=== PATIENT | male | born 1990 | race Caucasian/White ===

== ENCOUNTER 2017-06-24 10:57 | Inpatient (IN) | payer MEDICAID, OTHER ==
--- NOTE | 2017-06-24 11:29 | ED ---
General Adult HPI - General Chief complaint: Psychiatric Symptoms Stated complaint: Mental Health Time Seen by Provider: 06/24/17 11:05 Source: patient, police, RN notes reviewed Mode of arrival: ambulatory Limitations: no limitations - History of Present Illness Initial comments: This is a 26-year-old male who presents to the emergency department complaining of having a lot of past history of depression which she states continues today. Patient states he was drinking last night and probably still intoxicated today. According to the police brought him in they stated that he was walking in and out of traffic. Patient claims she was just walking in the street. Patient denies wanting to harm himself today though he has had suicidal ideations but he would never act on them he states. Patient states this is been something he is dealt with for many years and has never acted on them. Patient denies taking any pills today. Patient denies doing any illegal drugs except marijuana recently. Patient states he is not currently harm to himself. Patient does state that he probably does need to be evaluated because lately his depression has been getting worse. Patient denies any physical complaints today. - Related Data Home Medications Medication Instructions Recorded Confirmed No Known Home Medications [No 06/24/17 06/24/17 Known Home Medications] Allergies Allergy/AdvReac Type Severity Reaction Status Date / Time No Known Allergies Allergy Verified 06/24/17 12:15 Review of Systems ROS Statement: Those systems with pertinent positive or pertinent negative responses have been documented in the HPI. ROS Other: All systems not noted in ROS Statement are negative. Past Medical History Past Medical History: No Reported History History of Any Multi-Drug Resistant Organisms: None Reported Past Surgical History: No Surgical Hx Reported Past Psychological History: No Psychological Hx Reported Smoking Status: Current every day smoker Past Alcohol Use History: Occasional Past Drug Use History: Marijuana General Exam - General Exam Comments Initial Comments: GENERAL: Patient is well-developed and well-nourished. Patient is nontoxic and well- hydrated and is in no acute distress. ENT: Neck is soft and supple. No significant lymphadenopathy is noted. Oropharynx is clear. Moist mucous membranes. Neck has full range of motion without eliciting any pain. EYES: The sclera were anicteric and conjunctiva were pink and moist. Extraocular movements were intact and pupils were equal round and reactive to light. Eyelids were unremarkable. PULMONARY: Unlabored respirations. Good breath sounds bilaterally. No audible rales rhonchi or wheezing was noted. CARDIOVASCULAR: There is a regular rate and rhythm without any murmurs gallops or rubs. ABDOMEN: Soft and nontender with normal bowel sounds. No palpable organomegaly was noted. There is no palpable pulsatile mass. SKIN: Skin is clear with no lesions or rashes and otherwise unremarkable. NEUROLOGIC: Patient is alert and oriented x3. Cranial nerves II through XII are grossly intact. Motor and sensory are also intact. Normal speech, volume and content. Symmetrical smile. MUSCULOSKELETAL: Normal extremities with adequate strength and full range of motion. No lower extremity swelling or edema. No calf tenderness. LYMPHATICS: No significant lymphadenopathy is noted PSYCHIATRIC: Normal psychiatric evaluation. Normal interpersonal interactions appears functionally intact in deals appropriately with others. No signs of depression. No signs of anxiety. Limitations: no limitations Course Vital Signs 06/24/17 11:05 Temperature 97.3 F L Pulse Rate 99 Respiratory 18 Rate Blood Pressure 130/76 O2 Sat by Pulse 96 Oximetry Medical Decision Making - Medical Decision Making EKG shows normal sinus rhythm at 77 bpm FL interval is on a 38 QRS is under QT interval 354 QTC is 400. Patient's EKG shows no ST segment elevation or depression. Patient does have flattening of the T-wave in the precordial leads V3 through V6. - Lab Data Lab Results 06/24/17 Range/Units 12:00 Urine Opiates Screen Not Detected (NotDetected) Ur Oxycodone Screen Not Detected (NotDetected) Urine Methadone Screen Not Detected (NotDetected) Ur Propoxyphene Screen Not Detected (NotDetected) Ur Barbiturates Screen Not Detected (NotDetected) U Tricyclic Antidepress Not Detected (NotDetected) Ur Phencyclidine Scrn Not Detected (NotDetected) Ur Amphetamines Screen Not Detected (NotDetected) U Methamphetamines Scrn Not Detected (NotDetected) U Benzodiazepines Scrn Not Detected (NotDetected) Urine Cocaine Screen Not Detected (NotDetected) U Marijuana (THC) Screen Detected H (NotDetected) Disposition Clinical Impression: Depression, Suicidal ideation Disposition: ADMITTED IP TO THIS [facility] Time of Disposition: 16:08
[2017-06-24] MEDS ORDERED: MAG HYDROX/AL HYDROX/SIMETH 30 ML CUP PO PRN (16:08)
[2017-06-24] MEDS ORDERED: MAGNESIUM HYDROXIDE 2,400 MG/10 ML CUP PO PRN (16:08)
[2017-06-24] MEDS ORDERED: ACETAMINOPHEN TAB 325 MG TAB PO PRN (16:08)
[2017-06-24] MEDS ORDERED: ZIPRASIDONE 20 MG VIAL IM PRN (16:08)
--- NOTE | 2017-06-24 18:51 | P.MDCNMH ---
History of Present Illness H&P Date: 06/24/17 Chief Complaint: acute alcohol intoxication 26 year old male with no significant past medical history, presented by police due to alcohol intoxication. I interviewed the patient in the psych unit, patient was calm and cooperative. He reported that he was drinking heavily last night, and he could not remember anything that happened during the night and admits that he probably was wondering around in the park. however, this morning he believes that he was doing ok and minding his own business, but, per his report, his mom noticed some disturbing behaviors for which she called the police and was brought in here to the hospital. He reports that he's been going through some social issues in his life and he is currently unemployed that's why he decided to move back to his mother's house in the area. He otherwise denies any psychiatry illnesses in the past but due to life stressors he always thinks of suicide without having to encourage to commit and actually denies any plans. He also admitted that he would never and his life this way. He does admit to heavily drinking when he drinks and that's usually once or twice a month. He otherwise denies the use of any recreational drugs. Review of Systems Constitutional: Patient reports no fever, no chills, no night sweating, no significant weight changes Eyes: Patient reports no visual changes, no eye pain ENT: Patient reports no ear pain, no rhinorrhea, no sore throat. Patient does report some tootch ache over left lower molar Cardiovascular: Patient reports no chest pain, no exertional dyspnea, no peripheral leg edema, no orthopnea, no paroxysmal nocturnal dyspnea Respiratory:Patient reports no cough, no wheezing, no shortness of breath Gastrointestinal: Patient reports no diarrhea, no constipation, no nausea no vomiting, no abdominal pain Genitourinary: Patient reports no dysuria, no hematuria, no changes in urinary habits, no genital lesions, no penile discharge Musculoskeletal: Patient reports no muscle pain, no joint pain Psychiatric: Patient reports depressed mood and anxiety, suicidal ideation all his life without any actual plan Endocrine: Patient reports no heat intolerance, no cold intolerance, no excessive thirst, no polyuria Neurological: Patient reports no focal neurologic deficits, no weakness, no numbness, no tingling Hem/Lymphatic: Patient reports no bleeding tendency, no bruising, no swollen lymph glands Allergic/Immun: Patient reports no recent allergic reactions Skin: Patient reports no rashes, no pruritis, no ulcers Past Medical History Past Medical History: No Reported History History of Any Multi-Drug Resistant Organisms: None Reported Past Surgical History: No Surgical Hx Reported Past Psychological History: No Psychological Hx Reported Smoking Status: Current every day smoker Past Alcohol Use History: Occasional Additional Past Alcohol Use History / Comment(s): once or twice a month, but drinks heavily when he does Past Drug Use History: Marijuana Additional Drug Use History / Comment(s): occasional Additional History: Currently unemployed and lives with his mother. Family history denies any psychiatric disorder, or any cardiac problems Medications and Allergies Home Medications and Allergies Comment(s): denies taking any medications at home Home Medications Medication Instructions Recorded Confirmed Type No Known Home Medications [No 06/24/17 06/24/17 History Known Home Medications] Allergies Allergy/AdvReac Type Severity Reaction Status Date / Time No Known Allergies Allergy Verified 06/24/17 16:46 Physical Exam Vitals: Vital Signs Temp Pulse Pulse Resp BP BP Pulse Ox 06/24/17 16:39 97.4 F L 80 15 111/74 97 06/24/17 16:18 97.9 F 95 18 128/76 96 06/24/17 11:05 97.3 F L 99 18 130/76 96 Intake and Output 06/24/17 06/24/17 06/24/17 06:59 14:59 22:59 Other: Weight 63.503 kg 63.4 kg Patient Weight 06/25/17 06:59 Weight 63.4 kg Constitutional: Not in acute distress, pleasant, conversant, vital signs stable Eyes: Pupils equal round reactive to light , anicteric sclerae, moist conjunctivae ENMT: Normocephalic, atraumatic, oropharynx clear, no erythema/exudate Neck: Supple, FORM, no palpable thyromegally Lymphatics: no palpable cervical or supraclavicular lymph nodes, no palpable inguinal lymph nodes Respiratory: Clear to auscultation bilaterally, no wheezes, no crackles, no rhonchi, clear to percussion, normal respiratory effort without use of accessory muscles Cardiovascular: Regular rate and rhythm, no murmurs, no gallops, no rubs, no peripheral edema, no JVD, no carotid bruits, peripheral pulses palpable and equal over bilateral radial arteries and dorsalis pedis arteries Abdomen: Bowel sounds positive, soft, no tenderness to palpation, no palpable masses, no palpable hepatosplenomegally, no abdominal wall hernias Skin: Unremarkable temperature, tone, texture, and turgor, no induration or subcutaneous nodule, no rashes, no lesions, no ulcers Extremities: No digital cyanosis, ischemia or clubbing, no calf muscle tenderness bilaterally Psych: Alert, oriented to place, person and date, recent and remote memory intact, depressed mood and blunt affect, poor judgment Neurologic: Cranial nerves II-XII grossly intact, no focal sensory deficits to touch, Deep tendon reflexes unremarkable over bilateral knees Cranial Nerve Examination - Cranial Nerves Cranial Nerve II- Optic: Intact Cranial Nerve III- Oculomotor: Intact Cranial Nerve IV- Trochlear: Intact Cranial Nerve V- Trigeminal: Intact Cranial Nerve - Abducens: Intact Cranial Nerve VII- Facial: Intact Cranial Nerve VIII- Auditory: Intact Cranial Nerve IX- Glossopharyngeal: Intact Cranial Nerve X- Vagus: Intact Cranial Nerve XI- Accessory: Intact Cranial Nerve XII- Hypoglossal: Intact Results Labs: Abnormal Lab Results - Last 24 Hours (Table) 06/24/17 Range/Units 12:00 U Marijuana (THC) Screen Detected H (NotDetected) Assessment and Plan (1) Tobacco dependence Narrative/Plan: patient counseled to quit smoking nicotine replacement therapy offered Status: Chronic (2) Depression Narrative/Plan: management per psych Status: Acute (3) Suicidal ideation Narrative/Plan: management per psych Status: Acute (4) Alcohol abuse Narrative/Plan: patient counseled to abstain from alcohol abuse and educated regarding acceptable alcohol consumption behaviors Status: Acute Plan: Thank you for allowing us to participate in the care of this patient. We will follow peripherally. Do not hesitate to contact us with questions. Someone can be reached from the [facility] hospitalist group at all hours of the day at [phone].
[2017-06-25] MEDS: LORazepam 1 MG TAB PO PRN (03:28)
[2017-06-25 09:22] LABS: Basophils # (A) 0.1 k/uL (0-0.2); Basophils % (A) 1 %; CH 33.3; CHCM 33.2; Eosinophils # (A) 0.4 k/uL (0-0.7); Eosinophils % (A) 5 %; HCT 53.2 % (39.0-53.0); HDW 2.24; HGB 16.8 gm/dL (13.0-17.5); Luc # (Auto) 0.15; Luc % (Auto) 2; Lymphocytes # (A) 1.8 k/uL (1.0-4.8); Lymphocytes % (A) 22 %; MCH 31.9 pg (25.0-35.0); MCHC 31.6 g/dL (31.0-37.0); MCV 100.8 fL (80.0-100.0); Monocytes # (A) 0.4 k/uL (0-1.0); Monocytes % (A) 5 %; Neutrophils # (A) 5.6 k/uL (1.3-7.7); Neutrophils % (A) 65 %; RBC 5.28 m/uL (4.30-5.90); RDW 13.7 % (11.5-15.5); WBC 8.5 k/uL (3.8-10.6); WBC (Perox) 8.39
[2017-06-25 09:56] LABS: ALT 27 U/L (21-72); AST 31 U/L (17-59); Alkaline Phosphatase 96 U/L (38-126); Anion Gap 9 mmol/L; Blood Urea Nitrogen 11 mg/dL (9-20); Calcium 9.6 mg/dL (8.4-10.2); Carbon Dioxide 29 mmol/L (22-30); Chloride 103 mmol/L (98-107); Glucose 89 mg/dL (74-99); Non-African American GFR(MDRD) >60 (>60 ml/min/1.73 sqM); Potassium 4.5 mmol/L (3.5-5.1); Sodium 141 mmol/L (137-145); Total Bilirubin 0.6 mg/dL (0.2-1.3); Total Protein 6.6 g/dL (6.3-8.2)
[2017-06-25] MEDS: NICOTINE 14MG/24HR PATCH TRANSDERM SCH (10:13)
[2017-06-25] MEDS: ARIPiprazole 10 MG TAB PO SCH (13:28)
[2017-06-26] MEDS: LORazepam 1 MG TAB PO PRN ×2 (02:08→22:42)
--- NOTE | 2017-06-26 08:15 | HP ---
DATE OF SERVICE: 06/25/17 IDENTIFYING DATA: This patient is a 26 -year-old single male who was admitted to the mental health unit on a petition completed by his mother. HISTORY OF PRESENT ILLNESS: the patients mother petitioned the patient as he had been demonstrating bizarre behavior. She reported that he attempted to walk out into traffic and he had to be restrained by family members. He states that he does have suicidal thoughts and he had a plan of cutting his wrists. He recently relocated back to his mothers home from [facility]. He was out there with a girlfriend and apparently that relationship terminated. He describes frequent tearfulness and crying spells, decreased sleep, decreased appetite with weight loss. Energy has been low. He does describe episodes that could be manic where he will have decreased need for sleep, increased energy, racing thoughts, increased goal directed activity. He does endorse history of frequent mood swings. Additionally he reports feelings of being able to read others thoughts. He feels in general he is being watched but he does not know by who. Several times, he will experience seeing a light but does not know the meaning and it will happen in a variety of context. He is reporting no homicidal ideation. He will experience symptoms of anxiety intermittently but not in the form of panic attacks. He has been off psychotropic medication for at least five years. He has tried several but is unable to provide any report as to which worked or if there are any side effects. Past psychiatric history: This is the second inpatient admission to a psychiatric unit. The first one was several years ago. No history of suicide attempts. Previously he has tried Risperdal, [place], Lamictal with no report on any of those medicines. He is not currently working with a therapist or psychiatrist as an outpatient. Past medical history: none report. ALLERGIES: No known drug allergies. Chemical dependency history: he has been using alcohol for the past two days. Quantity unknown. He used marijuana every other day and reports no other use of illicit drug use. He has never been placed in residential treatment for chemical dependency reasons. Family psychiatric history: None reported. No suicides in the family. Family chemical dependency history: None reported. SOCIAL HISTORY: The patient is 26 years old. He is single. He has no children. He has recently broken up with a girlfriend that he has known for a short while. He was residing in [place] and now living back I [place] with his mother. They are originally from [place] but moved to [place] when he was 8 -year-old. He is a high school graduate. He states he does not do well in school as he did not try. No history of service. He has two brothers and one sister. He is not currently employed. He has no income. LEGAL HISTORY: He was arrested within the past year for drunken disorderly conduct. ABUSE HISTORY: None reported. PHYSICAL EXAMINATION: The patient is alert. He is a thin male appearing the stated age. He has a disheveled appearance. His shirt is oversized. Eye contact is appropriate. He demonstrates an increase in psychomotor activity as he frequently moves in his matty and fidgets. He demonstrates no verbal or physical aggressiveness. He endorses racing thoughts, depression, suicidal ideation, and some anxiety. Thought process can be direct. He demonstrates circumferential thinking and some tangential thinking. No loose associations or flight of ideas demonstrated. Affect demonstrates some range. He reports no homicidal ideation. At this moment he describes no auditory or visual hallucinations but he states that they will frequently occur. In general he feels he is being watched, lending to paranoid thought. No abnormal involuntary movements. His insight and judgement limited. He is oriented to person, place and date. He is able to spell world forward and backwards. STRENGTHS: Support from mother, willingness to receive treatment voluntarily. WEAKNESSES: Recent alcohol use. Noncompliant with medication. Intellect average. IMPRESSION: 1. Bipolar disorder, depressed with psychosis, rule out schizoaffective disorder. Bipolar type, cannabis use disorder, rule out alcoholic use disorder. 2. Psychosocial dysfunction due to psychiatric symptoms and substance use. PLAN: The patient will be admitted to the mental health unit. He is here voluntarily. We reviewed his presenting symptoms and decided to initiate Abilify 10 mg daily to address symptoms of mood instability and psychosis. The medication may require further titration. Social work will meet with the patient to complete a psychosocial assessment. The patient will be seen by internal medicine for routine history and physical examination. JIMMY
[2017-06-26] MEDS: ARIPiprazole 10 MG TAB PO SCH (09:23)
[2017-06-26] MEDS: NICOTINE 14MG/24HR PATCH TRANSDERM SCH ×2 (09:23→14:14)
--- NOTE | 2017-06-26 12:07 | P.PN ---
Progress Note - Text Interval History: This is a 26-year-old male who was admitted due to suicidal ideation, attempting to walk into traffic. I met with the patient and he reported to me that he is always heard voices most of his life but doesn't hear them while he is in the hospital only when he is out of the hospital. Patient states that he had been living in [place] and the living situation was poor, he been working at [employer] but when his car broke down was unable to get to work and they thought he quit and so he lost his job. He reports due to the lack of money he was unable to stay in his current living situation and so returned home to live with his mother. Patient is unable to discuss with me what occurred that he was thinking of suicide other than stating "I broke down" . Patient states that he had also been using alcohol several nights prior to his admission about a fifth a day and he stated the reason was that "felt good and right and was embracive". Patient reports that he has not recently taken any medications for at least the last 3-4 years for psychiatric reasons. He states that he is worried now about how the medication is going to affect him. He states that this is "sterile setting" and so he can't tell how he is doing on the medication. Patient reports that he is no longer thinking of suicide and is not currently hearing voices but is paranoid that people are watching him. Patient had no complaints of side effects from the medication and voiced no other concerns at this time. Mental Status: Appearance/Attitude: Patient was appropriately dressed, made intermittent eye contact and was cooperative. Behavior: Patient displayed no psychomotor agitation or retardation. Speech/Language: Patient's speech was spontaneous, normal volume and rhythm and he was coherent. Thought Process: Patient's thought processes were not goal-directed, he was circumstantial and tangential, there is no evidence of loose associations or flight of ideas. Thought Content: He stated that he is not currently hearing voices, but hears them on the outside and denied any visual hallucinations at this time. Patient states the people are watching him but he could not elaborate on that and no other delusional ideation was elicited. Patient states that he is here because of a "breakdown" and this is the reason for his one prior admission. Patient states that he lost his job and had no way to support himself and so moved back in with his mother. Patient was unable to elaborate on any questions instead was tangential and circumstantial. Suicidal/Homicidal Ideation: Patient denies any current suicidal or homicidal ideation. He is unable to elaborate on why he was feeling suicidal prior to admission. Sensorium/Cognition: Patient is alert and oriented to person, place, and time and his memory is grossly intact. Mood/Affect: Patient stated that he was not depressed but could not express how he was feeling, patient's affect is blunted. Insight/Judgement: Patient's insight and judgment are limited. Assessment: Patient reports that he has had one prior admission and has always heard voices that are judgmental in nature but currently is not hearing them. He states that he was not suicidal but was having a breakdown but again is unable to elaborate. Per staff who spoke with the patient's mother he has always been withdrawn this began around the age of 17 or 18, heard voices. Patient is unable to elaborate on symptoms instead giving very circumstantial and tangential responses to most questions and states that this is a sterile environment and he feels fine here. Plan: Patient is currently on Abilify 10 mg in the morning to target his psychotic symptoms and stabilize his mood and will continue at the current dose. Patient was encouraged to continue to attend and participate in groups and activities. Patient continues to require hospitalization to stabilize his mood.
[2017-06-27] MEDS: ARIPiprazole 10 MG TAB PO SCH (09:05)
[2017-06-27] MEDS: NICOTINE 14MG/24HR PATCH TRANSDERM SCH ×2 (09:05→13:50)
--- NOTE | 2017-06-27 12:20 | P.PN ---
Progress Note - Text Interval History: Patient is a 26-year-old male who was seen today and he reports that he had some difficulty sleeping last night and did request Ativan. Patient reported that his auditory hallucinations only occur in the "wrong environments" or when he is increasingly anxious. He reports that he is not hearing them here. Patient states that they were derogatory statements in the past but recently have just been statements about him. Patient states that people do notice him and keep an eye on him, he reported to me that he thinks at times the radio and his thoughts are in sync with each other. He denied thought insertion, he reported that he has at times thought he could broadcast his thoughts to others. He reports he is feeling more at ease here and describes " lots of feelings of dj vu" when he was visiting a girlfriend in [place]. Patient reported no side effects from the medication and stated that he thought he was ready to return home. Mental Status: Appearance/Attitude: Patient was sleeping in his bed but was easily aroused and was dressed appropriately. Patient made good eye contact and he was cooperative. Behavior: Patient did not display any psychomotor agitation or retardation. Speech/Language: Patient's speech was spontaneous and of normal volume and rhythm and he was coherent. Thought Process: Patient remained circumstantial but was more goal-directed today and his responses there is no evidence of loose associations or flight of ideas. Thought Content: Patient denied auditory hallucinations and denied visual hallucinations. Patient reports that he hears voices when he is in the wrong environments or when he is anxious. Patient was able to endorse thought broadcasting in the past and also reported that at times the radio and his thoughts aren't sync with each other. He did report that people notice him and keep an eye on him that he did not verbalize any delusional ideation. Patient states that he did not sleep well last night and did request an Ativan. Patient reported that he is eating well. Suicidal/Homicidal Ideation: Patient denied any current suicidal or homicidal ideation. Sensorium/Cognition: Patient was alert and oriented to person, place, and time and his memory is grossly intact. Mood/Affect: Patient's mood is stable and his affect is blunted. Insight/Judgement: Patient's insight and judgment are limited. Assessment: Patient has been taking his medication and has been participating in groups and is more goal-directed today in his responses. He was able to verbalize that he has had thought broadcasting ideation in the past, thoughts that the radio and his thoughts aren't sync with each other and that people keep an eye on him and noticed him. Patient states he feels more at ease here and has not had any further auditory hallucinations and is not having any suicidal thoughts. Patient states that he is ready to return home to live with his parents in [place] and states that he look for a job. Plan: Patient will continue on Abilify 10 mg daily to target his psychotic symptoms. Patient was encouraged to continue to attend and participate in groups and activities. Patient and I discussed the use of melatonin to assist with his sleep at night but he declined. Patient and I discussed his discharge for tomorrow and he was agreeable with this. We discussed his discharge in team treatment meeting today and the need for referrals for outpatient treatment.
[2017-06-27] MEDS: LORazepam 1 MG TAB PO PRN (21:43)
[2017-06-28 00:39] VITALS: BP 113/64; PULSE 73; RESP 18; TEMP 97.5
[2017-06-28] MEDS: NICOTINE 14MG/24HR PATCH TRANSDERM SCH (10:01)
[2017-06-28] MEDS: ARIPiprazole 10 MG TAB PO SCH (10:02)
--- NOTE | 2017-06-28 11:43 | P.DS ---
Providers Date of admission: 06/24/17 16:04 Expected date of discharge: 06/28/17 Attending physician: Hannah Miles MD Consults: 06/24/17 16:08 Consult Physician Routine Consulting Provider: Donnie Jay Consult Reason/Comments: follow up H & P Do you want consulting provider notified?: Yes Primary care physician: Stated None Hospital Course: Discharge Diagnoses: Schizoaffective disorder, depressed; cannabis use disorder , mild Reason for Admission: Patient is a 26-year-old male who was petitioned by his mother after he had been demonstrating bizarre behavior such as walking out into traffic and needing to be restrained by family members. Patient reported that he had suicidal thoughts and had a plan of cutting his wrists. He reported a breakup with his girlfriend and was having episodes of crying, not eating or sleeping with a decreased level of energy. Patient also reported hearing voices and having a breakdown. Patient prior to admission had been using alcohol for several days, he reported a fifth a day and patient reported use of marijuana every other day. Hospital Course: Patient was admitted on a voluntary basis, medical consultation was obtained, he was placed on routine precautions and laboratory studies were ordered. Patient was placed on Abilify 10 mg a day to target his psychotic symptoms and stabilize his mood. Patient reported that he hears voices frequently when he is under stress and reported no further auditory hallucinations in the hospital because this was a "sterile environment". Patient stated that he feels people are looking at him at times, he reported that at times the radio and his thoughts are in sync with each other. Patient reported that he was not hearing voices, he reported no further suicidal ideation, and was no longer depressed. Patient's Abilify was not increased, patient was attending groups. Patient reported that he was interested in trying to return to work and reported that he would return to live with his mother. Patient was no longer expressing any thoughts of suicide, his mood was more positive and he denied any auditory hallucinations and no delusional ideation. Patient reported no side effects from the medication. Discharge Mental Status: Appearance/Attitude: Patient was neatly dressed, made good eye contact and was cooperative. Behavior: Patient did not exhibit any psychomotor agitation or retardation. Speech/Language: Patient's speech was spontaneous, normal volume and rhythm and he was coherent. Thought Process: Patient was more goal-directed, at times circumstantial with no evidence of loose associations or flight of ideas. Thought Content: Patient denied any auditory or visual hallucinations, denied any racing thoughts and no paranoid or delusional ideation was elicited. Patient states that when he is anxious or under stress is when he hears voices and feels that people are looking at him. Patient stated that he was eating and sleeping well. Patient had requested Ativan last evening due to feeling he was not going to sleep well. Patient reported he was interested in trying to find a job again and did feel that the medications had made his thinking clearer. Suicidal/Homicidal Ideation: Patient denied any current suicidal or homicidal ideation. Sensorium/Cognition: Patient was alert and oriented to person, place, and time and his memory was grossly intact. Mood/Affect: Patient's mood was pleasant and his affect was appropriate Insight/Judgement: Patient's insight and judgment are fair. Laboratory Last Values WBC 8.5 k/uL (3.8-10.6) 06/25/17 09:01 RBC 5.28 m/uL (4.30-5.90) 06/25/17 09:01 Hgb 16.8 gm/dL (13.0-17.5) 06/25/17 09:01 Hct 53.2 % (39.0-53.0) H 06/25/17 09:01 MCV 100.8 fL (80.0-100.0) H 06/25/17 09:01 MCH 31.9 pg (25.0-35.0) 06/25/17 09:01 MCHC 31.6 g/dL (31.0-37.0) 06/25/17 09:01 RDW 13.7 % (11.5-15.5) 06/25/17 09:01 Plt Count 290 k/uL (150-450) 06/25/17 09:01 Neutrophils % 65 % 06/25/17 09:01 Lymphocytes % 22 % 06/25/17 09:01 Monocytes % 5 % 06/25/17 09:01 Eosinophils % 5 % 06/25/17 09:01 Basophils % 1 % 06/25/17 09:01 Neutrophils # 5.6 k/uL (1.3-7.7) 06/25/17 09:01 Lymphocytes # 1.8 k/uL (1.0-4.8) 06/25/17 09:01 Monocytes # 0.4 k/uL (0-1.0) 06/25/17 09:01 Eosinophils # 0.4 k/uL (0-0.7) 06/25/17 09:01 Basophils # 0.1 k/uL (0-0.2) 06/25/17 09:01 Sodium 141 mmol/L (137-145) 06/25/17 09:01 Potassium 4.5 mmol/L (3.5-5.1) 06/25/17 09:01 Chloride 103 mmol/L (98-107) 06/25/17 09:01 Carbon Dioxide 29 mmol/L (22-30) 06/25/17 09:01 Anion Gap 9 mmol/L 06/25/17 09:01 BUN 11 mg/dL (9-20) 06/25/17 09:01 Creatinine 0.80 mg/dL (0.66-1.25) 06/25/17 09:01 Est GFR (MDRD) Af Amer >60 (>60 ml/min/1.73 sqM) 06/25/17 09:01 Est GFR (MDRD) Non-Af >60 (>60 ml/min/1.73 sqM) 06/25/17 09:01 Glucose 89 mg/dL (74-99) 06/25/17 09:01 Calcium 9.6 mg/dL (8.4-10.2) 06/25/17 09:01 Total Bilirubin 0.6 mg/dL (0.2-1.3) 06/25/17 09:01 AST 31 U/L (17-59) 06/25/17 09:01 ALT 27 U/L (21-72) 06/25/17 09:01 Alkaline Phosphatase 96 U/L (38-126) 06/25/17 09:01 Total Protein 6.6 g/dL (6.3-8.2) 06/25/17 09:01 Albumin 4.1 g/dL (3.5-5.0) 06/25/17 09:01 TSH 1.490 mIU/L (0.465-4.680) 06/25/17 09:01 Urine Opiates Screen Not Detected (NotDetected) 06/24/17 12:00 Ur Oxycodone Screen Not Detected (NotDetected) 06/24/17 12:00 Urine Methadone Screen Not Detected (NotDetected) 06/24/17 12:00 Ur Propoxyphene Screen Not Detected (NotDetected) 06/24/17 12:00 Ur Barbiturates Screen Not Detected (NotDetected) 06/24/17 12:00 U Tricyclic Antidepress Not Detected (NotDetected) 06/24/17 12:00 Ur Phencyclidine Scrn Not Detected (NotDetected) 06/24/17 12:00 Ur Amphetamines Screen Not Detected (NotDetected) 06/24/17 12:00 U Methamphetamines Scrn Not Detected (NotDetected) 06/24/17 12:00 U Benzodiazepines Scrn Not Detected (NotDetected) 06/24/17 12:00 Urine Cocaine Screen Not Detected (NotDetected) 06/24/17 12:00 U Marijuana (THC) Screen Detected (NotDetected) H 06/24/17 12:00 Risk Assessment: Patient's risk for self-harm is moderate due to no prior history of suicide attempts, supportive family, use of alcohol and marijuana, non compliance with treatment Discharge Plan: Patient will be discharged today to return to live with his mother and will [facility] appointment is on July 03 at 1 PM for an intake. Patient will continue on Abilify 10 mg and he was given a prescription. Patient was encouraged to be compliant with the medication and his follow-up treatment. Patient was instructed to avoid any alcohol or drugs. Patient Condition at Discharge: Stable Plan - Discharge Summary New Discharge Prescriptions: New ARIPiprazole [Abilify] 10 mg PO DAILY #14 tab Discharge Medication List ARIPiprazole [Abilify] 10 mg PO DAILY #14 tab 06/28/17 [Rx] Follow up Appointment(s)/Referral(s): [facility] [Outside] - 07/03/17 1:00 pm (Intake 07/03/17 at 1:00 pm with Nick) None,Stated [Primary Care Provider] - 1-2 days Patient Instructions/Handouts: How to Stop Smoking (DC), Depression (DC), Suicide Prevention for Adults (DC) Activity/Diet/Wound Care/Special Instructions: Diet and activity as tolerated. No alcohol or street drugs. Remove all firearms from the home. Follow up with Primary Care DrShree in 1-2 days. Keep all follow up appointments. Contact your Primary Care DrShree or Psychiatrist for medication refills. Call crisis line or [phone] if having thoughts of hurting yourself or others. Discharge Disposition: HOME SELF-CARE
== END 2017-06-28 12:21 | disposition home or self-care (01) | DRG 885 ==
LOC: EC 10:57 → 3MHU 16:04
PROVIDERS: ADMIT Psychiatry & Neurology Psychiatry; ATTEND Psychiatry & Neurology Psychiatry
DX: F25.1 Schizoaffective disorder, depressive type (principal); R45.851 Suicidal ideations; F17.200 Nicotine dependence, unspecified, uncomplicated; F12.90 Cannabis use, unspecified, uncomplicated
CPT/HCPCS: 80053; 80306; 82075; 84443; 85025; 99285

== ENCOUNTER 2021-06-15 09:24 | Emergency (ER) | payer MEDICAID, OTHER ==
--- NOTE | 2021-06-15 09:41 | ED ---
General Adult HPI - General Chief complaint: Psychiatric Symptoms Stated complaint: Mental Health Time Seen by Provider: 06/15/21 09:31 Source: patient, RN notes reviewed Mode of arrival: ambulatory Limitations: no limitations - History of Present Illness Initial comments: Patient is a pleasant 30-year-old male presenting to the emergency Department with complaints of depression. Symptoms have progressed with the past several weeks. Patient is unclear why. A contreras has been drinking a lot on the weekends, none today. Patient was smoking marijuana however discontinue this around a week ago. No new physical complaints. Patient has occasional thoughts of suicide however no plan. No homicidal thoughts. Patient occasionally hears sounds and sees shadows. Patient denies feeling paranoid. - Related Data Home Medications Medication Instructions Recorded Confirmed Cephalexin [Keflex] 500 mg PO QID 06/15/21 06/15/21 Allergies Allergy/AdvReac Type Severity Reaction Status Date / Time No Known Allergies Allergy Verified 06/15/21 10:23 Review of Systems ROS Statement: Those systems with pertinent positive or pertinent negative responses have been documented in the HPI. ROS Other: All systems not noted in ROS Statement are negative. Constitutional: Denies: fever Eyes: Denies: eye pain ENT: Denies: ear pain Respiratory: Denies: cough Cardiovascular: Denies: chest pain Endocrine: Denies: fatigue Gastrointestinal: Denies: abdominal pain Genitourinary: Denies: dysuria Musculoskeletal: Denies: back pain Skin: Denies: rash Neurological: Denies: weakness Psychiatric: Reports: as per HPI, depression Past Medical History Past Medical History: No Reported History History of Any Multi-Drug Resistant Organisms: None Reported Past Surgical History: No Surgical Hx Reported Past Psychological History: No Psychological Hx Reported, Anxiety, Bipolar, Depression Past Alcohol Use History: Occasional Past Drug Use History: Marijuana General Exam Limitations: no limitations General appearance: alert, in no apparent distress Head exam: Present: normocephalic Eye exam: Present: normal appearance Neck exam: Present: normal inspection Respiratory exam: Present: normal lung sounds bilaterally Cardiovascular Exam: Present: regular rate, normal rhythm GI/Abdominal exam: Present: soft. Absent: tenderness Extremities exam: Present: normal inspection Neurological exam: Present: alert Psychiatric exam: Present: normal affect Skin exam: Present: normal color Course Vital Signs 06/15/21 09:25 Temperature 98 F Pulse Rate 109 H Respiratory 18 Rate Blood Pressure 148/97 O2 Sat by Pulse 98 Oximetry Medical Decision Making - Medical Decision Making Patient seen by mental health services with plan for discharge. Patient reevaluated and updated. Patient does contract for safety. - Lab Data Lab Results 06/15/21 Range/Units 09:44 Urine Opiates Screen Not Detected (NotDetected) Ur Oxycodone Screen Not Detected (NotDetected) Urine Methadone Screen Not Detected (NotDetected) Ur Propoxyphene Screen Not Detected (NotDetected) Ur Barbiturates Screen Not Detected (NotDetected) U Tricyclic Antidepress Not Detected (NotDetected) Ur Phencyclidine Scrn Not Detected (NotDetected) Ur Amphetamines Screen Not Detected (NotDetected) U Methamphetamines Scrn Not Detected (NotDetected) U Benzodiazepines Scrn Not Detected (NotDetected) Urine Cocaine Screen Not Detected (NotDetected) U Marijuana (THC) Screen Detected H (NotDetected) Disposition Clinical Impression: Depression Disposition: HOME SELF-CARE Condition: Stable Instructions (If sedation given, give patient instructions): Depression (ED), Help Prevent Suicide (ED) Additional Instructions: Please follow-up with primary care physician in the next couple days for recheck. Please also follow-up with mental health services as directed. Return for thoughts of self-harm, feeling paranoid, hallucinations, worsening symptoms or other concerns. Is patient prescribed a controlled substance at d/c from ED?: No Referrals: Ameena Aparicio DO [REFERRING] - 1-2 days Time of Disposition: 12:01
[2021-06-15 10:24] LABS: Amphetamine Screen,Urine Not Detected (NotDetected); Barbiturate Screen,Urine Not Detected (NotDetected); Benzodiazepines Screen,Urine Not Detected (NotDetected); Cocaine Screen,Urine Not Detected (NotDetected); Methadone Screen, Urine Not Detected (NotDetected); Opiate Screen,Urine Not Detected (NotDetected); Oxycodone Screen, Urine Not Detected (NotDetected); Phencyclidine Screen,Urine Not Detected (NotDetected); Tricyclic Antidepressant,Urine Not Detected (NotDetected); Urn Cannabinoid Scrn Detected (NotDetected)
[2021-06-15 12:12] VITALS: BP 124/84; PULSE 80; RESP 16; TEMP 97.8
== END 2021-06-15 12:18 | disposition home or self-care (01) ==
LOC: EC 09:24
DX: F32.9 Major depressive disorder, single episode, unspecified (principal)
CPT/HCPCS: 80306; 82075; 99284